=== PATIENT | male | born 1960 | race Caucasian/White ===

== ENCOUNTER → 2016-11-20 | Emergency (ER) | payer OTHER ==
[~2016-11-20] VITALS: Ht 172.7 cm; Wt 99.8 kg
[~2016-11-20] MED LIST: ADVIL200 M1 PO; BACTRIM DS TAB1 EACH PO; HYDROCODON-ACE1 EA10 PO; LIBRAX CAPSULE1 EACH PO; TRAMADOL HCL50 MG PO; TYLENOL325 MG PO
--- NOTE | 2016-11-22 15:04 | EKG ---
[facility] [address] [facility] [place] [address] Signed Normal sinus rhythm Normal ECG No previous ECGs available Confirmed by FELICITY EVANS MD ([id number] on 11/22/2016 3:04:02 PM Electronically Signed By: FELICITY EVANS MD 11/22/16 1504 PATIENT NAME: MINDY ODONNELL Electrocardiogram DATE OF : 64 PHYSICIAN: FELICITY EVANS MD REPORT #: [id number] REPORT IS CONFIDENTIAL AND NOT TO BE RELEASED WITHOUT AUTHORIZATION
== END ==
LOC: ED 10:57
DX: F10.20 Alcohol dependence, uncomplicated (principal); R53.1 Weakness; F17.200 Nicotine dependence, unspecified, uncomplicated; Z79.899 Other long term (current) drug therapy; Y90.0 Blood alcohol level of less than 20 mg/100 ml
CPT/HCPCS: 36415; 70450; 80053; 81001; 84484; 85025; 93005; 93010; 96360; 99284; G0480; J7030

== ENCOUNTER 2016-12-26 06:31 | Emergency (ER) | payer OTHER ==
[~2016-12-26] VITALS: Ht 172.7 cm; Wt 95.2 kg
[~2016-12-26 06:31] MED LIST changes: -BACTRIM DS TAB1 EACH PO
[2016-12-26] MEDS ORDERED: BACTRIM DS TAB1 EACH PO (07:01)
== END 2016-12-26 07:21 | disposition home or self-care (01) ==
LOC: ED 06:31
PROC: 0H9DXZZ Drainage of Right Lower Arm Skin, External Approach (ICD-10-PCS; principal; 2016-12-26)
DX: L02.413 Cutaneous abscess of right upper limb (principal); F17.200 Nicotine dependence, unspecified, uncomplicated; Z79.899 Other long term (current) drug therapy
CPT/HCPCS: 10060; 99283

== ENCOUNTER 2016-12-28 15:04 | Emergency (ER) | payer OTHER ==
[~2016-12-28] VITALS: Ht 172.7 cm; Wt 95.2 kg
[~2016-12-28 15:04] MED LIST changes: +BACTRIM DS TAB1 EACH PO
== END 2016-12-28 15:22 | disposition home or self-care (01) ==
LOC: ED 15:04
DX: Z00.8 Encounter for other general examination (principal)